=== PATIENT | male | born 1995 | race Caucasian/White ===

== ENCOUNTER 2022-03-23 20:42 | Emergency (ER) | payer SELFPAY ==
[2022-03-23 20:42] VITALS: BP 143/95; PULSE 138; RESP 18; TEMP 36.6; O2SAT 100; BMI 32.7
--- NOTE | 2022-03-23 21:05 | CTR_ITS ---
PROCEDURE INFORMATION: Exam: CT Abdomen And Pelvis Without Contrast Exam date and time: 03/23/2022 9:19 PM Age: 26 years old Clinical indication: Abdominal pain; Acute; Additional info: Abd pain TECHNIQUE: Imaging protocol: Computed tomography of the abdomen and pelvis without contrast. Radiation optimization: All CT scans at this facility use at least one of these dose optimization techniques: automated exposure control; mA and/or kV adjustment per patient size (includes targeted exams where dose is matched to clinical indication); or iterative reconstruction. COMPARISON: No relevant prior studies available. RADIATION DOSE METRICS: Total DLP (mGy-cm): 2404.09 FINDINGS: Lungs: Visualized lungs are clear. Pleural spaces: No pleural effusion. Heart: Visualized portions of the heart are unremarkable. Liver: The liver is unremarkable. Gallbladder and bile ducts: The gallbladder is unremarkable. No biliary ductal dilatation. Pancreas: The pancreas is unremarkable. No pancreatic ductal dilatation. Spleen: The spleen is unremarkable. Adrenal glands: The right and left adrenal glands are unremarkable. Kidneys and ureters: The right and left kidneys are unremarkable. The right and left ureters are unremarkable. Stomach and bowel: No obstruction. No mucosal thickening. Appendix: The appendix is visualized and is unremarkable. No findings to suggest acute appendicitis. Intraperitoneal space: No free intraperitoneal air. No ascites. No loculated fluid collections to suggest an abscess. Vasculature: No evidence for aortic aneurysm. Lymph nodes: No lymphadenopathy. Urinary bladder: The bladder is incompletely filled, which can limit evaluation. No focal abnormality in the bladder however. Reproductive: Unremarkable as visualized. Bones/joints: No acute fracture. Soft tissues: The extra-abdominal soft tissues are unremarkable. CT/CT abdomen pelvis wo con [id number] IMPRESSION: 1. The bladder is incompletely filled, which can limit evaluation. No focal abnormality in the bladder however. 2. No other acute abnormality in the abdomen or pelvis.
--- NOTE | 2022-03-23 21:09 | ED_ITS ---
Documented by User: Jeanne Hernandes MD 03/23/22 23:08 HPI - General Adult General: Chief complaint: Abdominal Pain Stated complaint: ABD Pain Time Seen by Provider: 03/23/22 20:58 History of Present Illness: Patient is a 26-year-old male with no prior abdominal surgeries presenting to the emergency room with complaints of right upper quadrant abdominal pain since this morning. Patient tells me that he has had multiple episodes of nausea and vomiting for the last 4 days. However this morning has noticed right upper quadrant abdominal pain decided to come to the emergency room for evaluation. Patient was playing golf and this all happened. Patient reports not drinking enough water outside. Patient denies any diarrhea/melena/hematochezia. No urinary complaints at this time. Denies any chest pain, shortness breath, palpitation and light-headedness. Onset:4 days of N/V, 1 day of abd pain Duration:ongoing Location:home Severity:moderate Associated symptoms: Reports nausea and vomiting; Deny chest pain, dyspnea, rash or palpitations Review of Systems Const: Denies: fever(s) or chills Eyes: Denies: change in vision ENMT: Denies: mouth pain Card: Denies: chest pain or palpitations Resp: Denies: dyspnea or non-productive cough GI: Reports: abdominal pain, nausea and vomiting; Denies: diarrhea : Denies: dysuria Musc: Denies: extremity pain Skin/Breast: Denies: rash or new lesions Neuro: Denies: weakness in extremities Psych: Reports: other (Normal mood) Javier/Lymph: Denies: easy bruising [facility] ED PFSH: Medical History Anxiety Social History Smoking and tobacco status: never smoked Alcohol intake: never Substance/Drug Use: never Physical Exam Const: COMMON NORMALS: alert HENMT: COMMON NORMALS: atraumatic HEAD & SCALP: atraumatic MOUTH: moist mucous membranes not abnormal Eye: COMMON NORMALS: EOMs intact bilaterally and conjunctivae normal CONJUNCTIVA: Yes conjunctivae normal Neck/C-Spine: COMMON NORMALS: full ROM and supple Resp: COMMON NORMALS: normal respiratory effort and clear to auscultation bilaterally AUSCULTATION: clear to auscultation bilaterally Cardio: RATE: tachycardic GI: COMMON NORMALS: Soft to palpation and non-tender PALPATION: Yes Soft to palpation Extremity: COMMON NORMALS: full ROM Neuro: SENSORIUM/ORIENTATION: Yes alert MOTOR EXAM: No Abnormal motor strength present and Other motor observations present (no focal motor deficits) Psych: COMMON NORMALS: speech normal SPEECH: Yes normal speech MOOD & AFFECT: Yes euthymic mood Course Vital Signs: Vital signs: Vital Signs Temperature 97.9 F 03/23/22 20:42 Pulse Rate 98 03/24/22 00:00 Respiratory Rate 16 03/24/22 00:00 Blood Pressure 104/73 03/24/22 00:00 Pulse Oximetry 100 03/24/22 00:00 MDM - General Adult Medical Decision Making 26-year-old male presenting to emergency room with complaint of right upper quadrant abdominal pain since this morning with nausea and vomiting x4 days. On exam, patient has no Jasmine sign. +Mild focal tenderness palpation the right upper quadrant. Initially on arrival, patient was tachycardic to the 140s to 160s. Patient is sinus tachycardia. Patient reports feeling anxious coming to the emergency room. Patient tells me that he is having currently having a panic attack. FAST negative. WBC of 13.1. Hemogobin of 17.7. Ultrasound FAST negative. CT abdomen pelvis negative for any acute finding. Ultrasound gallbladder did not show any signs of acute cholecystitis or choledocholithiasis. Patient received 2 L of fluid, 2 mg of Ativan 5 mg of metoprolol with improvement in heart rate. He has a lactic of 2.4 creatinine 1.3. D-dimer within normal limit. Free thyroxine appears to be mildly elevated. Patient will need repeat lactic acid. Case signed out to Dr. Welch pending repeat lactic acid. Lab Data : 03/23/22 21:10 03/23/22 21:10 Radiology Impressions Abdomen/Pelvis CT 03/23/22 21:05 IMPRESSION: 1. The bladder is incompletely filled, which can limit evaluation. No focal abnormality in the bladder however. 2. No other acute abnormality in the abdomen or pelvis. Gallbladder Ultrasound 03/23/22 21:30 IMPRESSION: Mild hepatomegaly and mild fatty infiltration of the liver. Laboratory Results WBC 13.1 10^3/uL (4.0-10.0) H 03/23/22 21:10 RBC 5.99 10^6/uL (4.1-5.3) H 03/23/22 21:10 Hgb 17.7 g/dL (11.7-16.6) H 03/23/22 21:10 Hct 49.4 % (42.0-52.0) 03/23/22 21:10 MCV 82.5 fl (80-94) 03/23/22 21:10 MCH 29.5 pg (28.0-34.0) 03/23/22 21:10 MCHC 35.8 g/dL (30.0-36.0) 03/23/22 21:10 RDW 12.0 % (12.1-15.1) L 03/23/22 21:10 Plt Count 493 10^3/cmm (130-400) H 03/23/22 21:10 MPV 9.2 fL (7.4-10.4) 03/23/22 21:10 Neut % (Auto) 46.1 % 03/23/22 21:10 Lymph % (Auto) 39.4 % 03/23/22 21:10 [place] % (Auto) 13.1 % 03/23/22 21:10 Eos % (Auto) 0.3 % 03/23/22 21:10 Baso % (Auto) 0.8 % 03/23/22 21:10 Neut # (Auto) 6.02 10^3/uL (1.8-7.7) 03/23/22 21:10 Lymph # (Auto) 5.2 10^3/uL (0.8-4.8) H 03/23/22 21:10 [place] # (Auto) 1.7 10^3/uL (0.2-0.9) H 03/23/22 21:10 Eos # (Auto) 0.0 10^3/uL (0.0-0.8) 03/23/22 21:10 Baso # (Auto) 0.1 10^3/uL (0.0-0.1) 03/23/22 21:10 Nucleated RBC % (auto) 0 % 03/23/22 21:10 Nucleated RBCs # 0.0 /100WBC 03/23/22 21:10 D-Dimer <= 0.27 ug/mIFEU (0-0.59) 03/23/22 21:10 Sodium 136 mmol/L (136-145) 03/23/22 21:10 Potassium 3.8 mmol/L (3.5-5.1) 03/23/22 21:10 Chloride 93 mmol/L (98-107) L 03/23/22 21:10 Carbon Dioxide 23 mmol/L (22-29) 03/23/22 21:10 Anion Gap 23.8 (5-19) H 03/23/22 21:10 BUN 19 mg/dL (6-20) 03/23/22 21:10 Creatinine 1.3 mg/dL (0.7-1.2) H 03/23/22 21:10 GFR Calculation 66.7 mL/min (90-130) L 03/23/22 21:10 Glucose 112 mg/dL (65-115) 03/23/22 21:10 Calculated Osmolality 285 mOsm/kg (285-295) 03/23/22 21:10 Lactate 1.5 mmol/L (0.5-2.2) 03/23/22 23:43 Calcium 10.9 mg/dL (8.5-10.5) H 03/23/22 21:10 Total Bilirubin 1.4 mg/dL (0.15-1.2) H 03/23/22 21:10 AST 33 U/L (0-40) 03/23/22 21:10 ALT 44 U/L (0-41) H 03/23/22 21:10 Alkaline Phosphatase 60 IU/L (40-130) 03/23/22 21:10 Total Protein 9.4 g/dL (6.6-8.7) H 03/23/22 21:10 Albumin 5.9 g/dL (3.5-5.2) H 03/23/22 21:10 Globulin 3.5 g/dL (1.3-4.6) 03/23/22 21:10 Lipase 26 U/L (13-60) 03/23/22 21:10 TSH 3.00 uIU/mL (0.27-4.20) 03/23/22 21:10 Free T4 2.12 ng/dL (0.82-1.77) H 03/23/22 21:10 Urine Color Yellow (Yellow) 03/23/22 22:19 Urine Appearance Sl hazy (CLEAR) 03/23/22 22:19 Urine pH 5 (5-7) 03/23/22 22:19 Ur Specific Limon 1.025 (1.005-1.030) 03/23/22 22:19 Urine Protein 1+ (Negative) H 03/23/22 22:19 Urine Glucose (UA) Norm (Normal) 03/23/22 22:19 Urine Ketones 2+ (Negative) H 03/23/22 22:19 Urine Blood Trace (Negative) H 03/23/22 22:19 Urine Nitrate Negative (Negative) 03/23/22 22:19 Urine Bilirubin 1+ (Negative) H 03/23/22 22:19 Urine Urobilinogen 1 mg/dL (Negative) H 03/23/22 22:19 Ur Leukocyte Esterase Negative (Negative) 03/23/22 22:19 Urine RBC Rare /hpf (0-2) 03/23/22 22:19 Urine WBC 0-4 /hpf (0-5) H 03/23/22 22:19 Ur Squamous Epith Cells 0-4 /hpf (0-5) H 03/23/22 22:19 Amorphous Sediment Not Reportable 03/23/22 22:19 Urine Bacteria 1+ /hpf (NONE) H 03/23/22 22:19 Fine Granular Casts 0-4 /lpf H 03/23/22 22:19 Urine Mucus 2+ /hpf 03/23/22 22:19 Imaging Data Other Imaging: Radiologist's impression: [address] [address] [address] Scan Report Signed Patient: Da Fontenot Unit #: [id number] : 1995 Age/Sex: 26 / M ADM Date: 03/23/22 Loc: ER Room/Bed: Attending Dr: Ordering Provider/Ordering MD: Jeanne Hernandes MD Date of Service: 03/23/22 Procedure(s): CT abdomen pelvis con [id number] Accession Number(s): [id number] Report Number: [id number] PROCEDURE INFORMATION: Exam: CT Abdomen And Pelvis Without Contrast Exam date and time: 03/23/2022 9:19 PM Age: 26 years old Clinical indication: Abdominal pain; Acute; Additional info: Abd pain TECHNIQUE: Imaging protocol: Computed tomography of the abdomen and pelvis without contrast. Radiation optimization: All CT scans at this facility use at least one of these dose optimization techniques: automated exposure control; mA and/or kV adjustment per patient size (includes targeted exams where dose is matched to clinical indication); or iterative reconstruction. COMPARISON: No relevant prior studies available. RADIATION DOSE METRICS: Total DLP (mGy-cm): 2404.09 FINDINGS: Lungs: Visualized lungs are clear. Pleural spaces: No pleural effusion. Heart: Visualized portions of the heart are unremarkable. Liver: The liver is unremarkable. Gallbladder and bile ducts: The gallbladder is unremarkable. No biliary ductal dilatation. Pancreas: The pancreas is unremarkable. No pancreatic ductal dilatation. Spleen: The spleen is unremarkable. Adrenal glands: The right and left adrenal glands are unremarkable. Kidneys and ureters: The right and left kidneys are unremarkable. The right and left ureters are unremarkable. Stomach and bowel: No obstruction. No mucosal thickening. Appendix: The appendix is visualized and is unremarkable. No findings to suggest acute appendicitis. Intraperitoneal space: No free intraperitoneal air. No ascites. No loculated fluid collections to suggest an abscess. Vasculature: No evidence for aortic aneurysm. Lymph nodes: No lymphadenopathy. Urinary bladder: The bladder is incompletely filled, which can limit evaluation. No focal abnormality in the bladder however. Reproductive: Unremarkable as visualized. Bones/joints: No acute fracture. Soft tissues: The extra-abdominal soft tissues are unremarkable. CT/CT abdomen pelvis wo con [id number] IMPRESSION: 1. The bladder is incompletely filled, which can limit evaluation. No focal abnormality in the bladder however. 2. No other acute abnormality in the abdomen or pelvis. ? Dictated By: Giovanna Lincoln MD Signed By: Giovanna Lincoln MD Signed Date/Time: 03/23/222127 DD/ 18 Discharge Plan Discharge Patient Disposition: Home Clinical Impression: Abdominal pain, Nausea & vomiting Condition: Stable Prescriptions: New acetaminophen 500 mg tablet 500 mg PO Q6H PRN (Reason: pain) 5 Days Qty: 20 0RF Pepcid 20 mg tablet 20 mg PO BID PRN (Reason: abdominal pain) 10 Days Qty: 20 0RF ondansetron 4 mg tablet,disintegrating 4 mg PO TID PRN (Reason: nausea and vomiting) 4 Days Qty: 12 0RF Maalox Advanced 1,000-60 mg tablet,chewable 1 tab PO TID PRN (Reason: abdominal pain) 7 Days Qty: 21 0RF Discharge Orders: Discharge ED (Routine); Ordered 03/24/22 Ordered By: Bladimir Welch Discharge Diet: Advance as tolerated Discharge Activity: Increase activity as tolerated Patient Instructions: Acute Nausea and Vomiting (ED), Abdominal Pain (ED) Activity Restrictions/Additional Instructions: Please come back if you have any worsening abdominal pain, fever or chills, nausea or vomiting, diarrhea, blood in the stool, inability hold down liquid or solids, or any new concerning complaints. Stand Alone Forms: Work/School Release Coding Level of Care Code ED Developer [employer] for [employer] Fwd Exam Comprehensive Documented by User: Bladimir Welch MD 03/24/22 00:22 HPI - General Adult General: Chief complaint: Abdominal Pain Stated complaint: ABD Pain Time Seen by Provider: 03/23/22 20:58 [facility] ED PFSH: Medical History Anxiety Social History Smoking and tobacco status: never smoked Alcohol intake: never Substance/Drug Use: never Course Vital Signs: Vital signs: Vital Signs Temperature 97.9 F 03/23/22 20:42 Pulse Rate 98 03/24/22 00:00 Respiratory Rate 16 03/24/22 00:00 Blood Pressure 104/73 03/24/22 00:00 Pulse Oximetry 100 03/24/22 00:00 MDM - General Adult Medical Decision Making 26-year-old male presenting to emergency room with complaint of right upper quadrant abdominal pain since this morning with nausea and vomiting x4 days. On exam, patient has no Jasmine sign. +Mild focal tenderness palpation the right upper quadrant. Initially on arrival, patient was tachycardic to the 140s to 160s. Patient is sinus tachycardia. Patient reports feeling anxious coming to the emergency room. Patient tells me that he is having currently having a panic attack. FAST negative. WBC of 13.1. Hemogobin of 17.7. Ultrasound FAST negative. CT abdomen pelvis negative for any acute finding. Ultrasound gallbladder did not show any signs of acute cholecystitis or choledocholithiasis. Patient received 2 L of fluid, 2 mg of Ativan 5 mg of metoprolol with improvement in heart rate. He has a lactic of 2.4 creatinine 1.3. D-dimer within normal limit. Free thyroxine appears to be mildly elevated. Patient will need repeat lactic acid. Case signed out to Dr. Welch pending repeat lactic acid. Patient turned over me to follow repeat lactate which is normal his heart rate here is improved he feels improved he is stable for discharge follow-up PCP and return if worsening. Lab Data : 03/23/22 21:10 03/23/22 21:10 Radiology Impressions Abdomen/Pelvis CT 03/23/22 21:05 IMPRESSION: 1. The bladder is incompletely filled, which can limit evaluation. No focal abnormality in the bladder however. 2. No other acute abnormality in the abdomen or pelvis. Gallbladder Ultrasound 03/23/22 21:30 IMPRESSION: Mild hepatomegaly and mild fatty infiltration of the liver. Laboratory Results WBC 13.1 10^3/uL (4.0-10.0) H 03/23/22 21:10 RBC 5.99 10^6/uL (4.1-5.3) H 03/23/22 21:10 Hgb 17.7 g/dL (11.7-16.6) H 03/23/22 21:10 Hct 49.4 % (42.0-52.0) 03/23/22 21:10 MCV 82.5 fl (80-94) 03/23/22 21:10 MCH 29.5 pg (28.0-34.0) 03/23/22 21:10 MCHC 35.8 g/dL (30.0-36.0) 03/23/22 21:10 RDW 12.0 % (12.1-15.1) L 03/23/22 21:10 Plt Count 493 10^3/cmm (130-400) H 03/23/22 21:10 MPV 9.2 fL (7.4-10.4) 03/23/22 21:10 Neut % (Auto) 46.1 % 03/23/22 21:10 Lymph % (Auto) 39.4 % 03/23/22 21:10 [place]uel[place] % (Auto) 13.1 % 03/23/22 21:10 Eos % (Auto) 0.3 % 03/23/22 21:10 Baso % (Auto) 0.8 % 03/23/22 21:10 Neut # (Auto) 6.02 10^3/uL (1.8-7.7) 03/23/22 21:10 Lymph # (Auto) 5.2 10^3/uL (0.8-4.8) H 03/23/22 21:10 [place] # (Auto) 1.7 10^3/uL (0.2-0.9) H 03/23/22 21:10 Eos # (Auto) 0.0 10^3/uL (0.0-0.8) 03/23/22 21:10 Baso # (Auto) 0.1 10^3/uL (0.0-0.1) 03/23/22 21:10 Nucleated RBC % (auto) 0 % 03/23/22 21:10 Nucleated RBCs # 0.0 /100WBC 03/23/22 21:10 D-Dimer <= 0.27 ug/mIFEU (0-0.59) 03/23/22 21:10 Sodium 136 mmol/L (136-145) 03/23/22 21:10 Potassium 3.8 mmol/L (3.5-5.1) 03/23/22 21:10 Chloride 93 mmol/L (98-107) L 03/23/22 21:10 Carbon Dioxide 23 mmol/L (22-29) 03/23/22 21:10 Anion Gap 23.8 (5-19) H 03/23/22 21:10 BUN 19 mg/dL (6-20) 03/23/22 21:10 Creatinine 1.3 mg/dL (0.7-1.2) H 03/23/22 21:10 GFR Calculation 66.7 mL/min (90-130) L 03/23/22 21:10 Glucose 112 mg/dL (65-115) 03/23/22 21:10 Calculated Osmolality 285 mOsm/kg (285-295) 03/23/22 21:10 Lactate 1.5 mmol/L (0.5-2.2) 03/23/22 23:43 Calcium 10.9 mg/dL (8.5-10.5) H 03/23/22 21:10 Total Bilirubin 1.4 mg/dL (0.15-1.2) H 03/23/22 21:10 AST 33 U/L (0-40) 03/23/22 21:10 ALT 44 U/L (0-41) H 03/23/22 21:10 Alkaline Phosphatase 60 IU/L (40-130) 03/23/22 21:10 Total Protein 9.4 g/dL (6.6-8.7) H 03/23/22 21:10 Albumin 5.9 g/dL (3.5-5.2) H 03/23/22 21:10 Globulin 3.5 g/dL (1.3-4.6) 03/23/22 21:10 Lipase 26 U/L (13-60) 03/23/22 21:10 TSH 3.00 uIU/mL (0.27-4.20) 03/23/22 21:10 Free T4 2.12 ng/dL (0.82-1.77) H 03/23/22 21:10 Urine Color Yellow (Yellow) 03/23/22 22:19 Urine Appearance Sl hazy (CLEAR) 03/23/22 22:19 Urine pH 5 (5-7) 03/23/22 22:19 Ur Specific Limon 1.025 (1.005-1.030) 03/23/22 22:19 Urine Protein 1+ (Negative) H 03/23/22 22:19 Urine Glucose (UA) Norm (Normal) 03/23/22 22:19 Urine Ketones 2+ (Negative) H 03/23/22 22:19 Urine Blood Trace (Negative) H 03/23/22 22:19 Urine Nitrate Negative (Negative) 03/23/22 22:19 Urine Bilirubin 1+ (Negative) H 03/23/22 22:19 Urine Urobilinogen 1 mg/dL (Negative) H 03/23/22 22:19 Ur Leukocyte Esterase Negative (Negative) 03/23/22 22:19 Urine RBC Rare /hpf (0-2) 03/23/22 22:19 Urine WBC 0-4 /hpf (0-5) H 03/23/22 22:19 Ur Squamous Epith Cells 0-4 /hpf (0-5) H 03/23/22 22:19 Amorphous Sediment Not Reportable 03/23/22 22:19 Urine Bacteria 1+ /hpf (NONE) H 03/23/22 22:19 Fine Granular Casts 0-4 /lpf H 03/23/22 22:19 Urine Mucus 2+ /hpf 03/23/22 22:19 Discharge Plan Discharge Patient Disposition: Home Clinical Impression: Abdominal pain, Nausea & vomiting Condition: Stable Prescriptions: New acetaminophen 500 mg tablet 500 mg PO Q6H PRN (Reason: pain) 5 Days Qty: 20 0RF Pepcid 20 mg tablet 20 mg PO BID PRN (Reason: abdominal pain) 10 Days Qty: 20 0RF ondansetron 4 mg tablet,disintegrating 4 mg PO TID PRN (Reason: nausea and vomiting) 4 Days Qty: 12 0RF Maalox Advanced 1,000-60 mg tablet,chewable 1 tab PO TID PRN (Reason: abdominal pain) 7 Days Qty: 21 0RF Discharge Orders: Discharge ED (Routine); Ordered 03/24/22 Ordered By: Bladimir Welch Discharge Diet: Advance as tolerated Discharge Activity: Increase activity as tolerated Patient Instructions: Acute Nausea and Vomiting (ED), Abdominal Pain (ED) Activity Restrictions/Additional Instructions: Please come back if you have any worsening abdominal pain, fever or chills, nausea or vomiting, diarrhea, blood in the stool, inability hold down liquid or solids, or any new concerning complaints. Stand Alone Forms: Work/School Release Coding Level of Care Code ED Developer [employer] Fwd Exam Comprehensive
[2022-03-23] MEDS: LORazepam 2 mg/mL INJ 1 mL IVP (21:23)
[2022-03-23 21:25] VITALS: BP 148/88; PULSE 152; RESP 18; O2SAT 100
[2022-03-23] MEDS: sodium chloride 0.9% 1,000 ML 999 ML IV ×4 (21:27→23:46)
--- NOTE | 2022-03-23 21:30 | USR_ITS ---
PROCEDURE INFORMATION: Exam: US Abdomen, Limited; Right Upper Quadrant Exam date and time: 03/23/2022 9:43 PM Age: 26 years old Clinical indication: Abdominal pain; Periumbilical; Additional info: Ruq pain TECHNIQUE: Imaging protocol: US abdomen. Real time ultrasound with image documentation. Limited exam focused on the right upper quadrant. COMPARISON: CT abdomen pelvis wo con [id number] 03/23/2022 9:19 PM FINDINGS: Limitations: Study is technically limited due to body habitus. Liver: Mildly increased echotexture in the liver, consistent with mild fatty infiltration. The liver is mildly enlarged measuring 19.5 cm in length. Gallbladder: The gallbladder is unremarkable. No gallstones or intraluminal sludge. No gallbladder wall thickening. No pericholecystic fluid. Sonographic Jasmine's sign is negative per report from the medical technologist generalist. Biliary ducts: Normal. No stones. No dilation. Pancreas: Incomplete visualization of the pancreas due to overlying bowel gas. Visualized portions of the pancreas are unremarkable. Right kidney: The right kidney is unremarkable. Aorta: Visualized aorta is unremarkable. Inferior vena cava: Visualized IVC is unremarkable. Portal venous: Hepatopetal flow in the portal vein. Intraperitoneal space: No ascites. US/US gall bladder [id number] IMPRESSION: Mild hepatomegaly and mild fatty infiltration of the liver.
[2022-03-23 21:34] LABS: Basophils # 0.1 10^3/uL (0.0-0.1); Basophils % 0.8 %; Eosinophils % 0.3 %; Hematocrit 49.4 % (42.0-52.0); Hemoglobin 17.7 g/dL (11.7-16.6); Lymphocytes # 5.2 10^3/uL (0.8-4.8); Lymphocytes % 39.4 %; Mean Corpuscular HGB Conc 35.8 g/dL (30.0-36.0); Mean Corpuscular Hemoglobin 29.5 pg (28.0-34.0); Mean Corpuscular Volume 82.5 fl (80-94); Mean Platelet Volume 9.2 fL (7.4-10.4); Monocytes # 1.7 10^3/uL (0.2-0.9); Monocytes % 13.1 %; Neutrophils # 6.02 10^3/uL (1.8-7.7); Neutrophils % 46.1 %; Nucleated Red Blood Cells % 0 %; Platelet Count 493 10^3/cmm (130-400); Red Blood Count 5.99 10^6/uL (4.1-5.3); White Blood Count 13.1 10^3/uL (4.0-10.0)
[2022-03-23] MEDS: metoprolol tartrate 1 mg/1 mL SDV 5 mL 5 MG IVP ×2 (21:36→23:15)
[2022-03-23 21:45] VITALS: BP 134/89; PULSE 111; RESP 16; O2SAT 100
[2022-03-23 22:00] VITALS: BP 127/66; PULSE 105; RESP 17; O2SAT 96
[2022-03-23 22:10] LABS: Alanine Aminotransferase 44 U/L (0-41); Albumin Level 5.9 g/dL (3.5-5.2); Alkaline Phosphatase 60 IU/L (40-130); Anion Gap 23.8 (5-19); Aspartate Amino Transferase 33 U/L (0-40); Blood Urea Nitrogen 19 mg/dL (6-20); Calcium 10.9 mg/dL (8.5-10.5); Carbon Dioxide 23 mmol/L (22-29); Chloride 93 mmol/L (98-107); Free T4 Free Thyroxine 2.12 ng/dL (0.82-1.77); Globulin 3.5 g/dL (1.3-4.6); Glomerular Filtration Rate 66.7 mL/min (90-130); Glucose 112 mg/dL (65-115); Lipase 26 U/L (13-60); Osmolality Calculated 285 mOsm/kg (285-295); Potassium 3.8 mmol/L (3.5-5.1); Sodium 136 mmol/L (136-145); Total Bilirubin 1.4 mg/dL (0.15-1.2); Total Protein 9.4 g/dL (6.6-8.7)
[2022-03-23 22:28] LABS: Lactate (Lactic Acid level) 2.4 mmol/L (0.5-2.2)
[2022-03-23 22:45] VITALS: BP 128/66; PULSE 120; RESP 16; O2SAT 100
[2022-03-23 22:59] LABS: D Dimer <= 0.27 ug/mIFEU (0-0.59)
[2022-03-23 23:08] LABS: Add Urine Microscopic? YES; Bilirubin Urine 1+ (Negative); Blood Urine Trace (Negative); Glucose Urine UA Norm (Normal); Ketones Urine 2+ (Negative); Leukocyte Esterase Urine Negative (Negative); Nitrate Urine Negative (Negative); Protein Urine 1+ (Negative); RBC Urine RARE /hpf (0-2); Specific Gravity, Urine 1.025 (1.005-1.030); Squamous Epithelial Cell Urine 0-4 /hpf (0-5); Urine Appearance SL Hazy (CLEAR); Urine Color Yellow (Yellow); Urobilinogen Urine 1 mg/dL (Negative); WBC Urine 0-4 /hpf (0-5); pH Urine 5 (5-7)
[2022-03-23 23:09] LABS: Bacteria Urine 1+ /hpf; Fine Granular Casts Urine 0-4 /lpf; Mucus Urine 2+ /hpf
[2022-03-23 23:15] VITALS: BP 117/68; PULSE 106; RESP 15; O2SAT 98
[2022-03-24] VITALS: BP 104/73; PULSE 98; RESP 16; O2SAT 100
[2022-03-24 00:14] LABS: Lactate (Lactic Acid level) 1.5 mmol/L (0.5-2.2)
[2022-03-24 00:31] VITALS: BP 129/74; PULSE 104; RESP 16; O2SAT 96
== END 2022-03-24 00:33 | disposition home or self-care (01) ==
PROVIDERS: Emergency Medicine; Emergency Provider Emergency Medicine
DX: R10.11 Right upper quadrant pain (principal); R11.2 Nausea with vomiting, unspecified
CPT/HCPCS: 74176; 76705; 80053; 81001; 83605; 83690; 84439; 84443; 85025; 85378; 96361; 96374; 96375; 96376; 99284; J2060; J3490; J7030